=== PATIENT | female | born 1960 | race Caucasian/White ===

== ENCOUNTER 2017-03-26 08:22 | Outpatient (CLI) | payer BC | END 2017-03-26 08:23 | disposition home or self-care (01) | DX: Z13.89 Encounter for screening for other disorder (principal) ==

== ENCOUNTER 2017-10-19 11:48 | Outpatient (CLI) | payer OTHER | END 2017-10-19 11:49 | disposition home or self-care (01) | LOC: LAB 11:48 | PROVIDERS: ATTEND Obstetrics & Gynecology | DX: Z11.59 Encounter for screening for other viral diseases (principal) | CPT/HCPCS: 36415; 86803 ==

== ENCOUNTER 2017-10-25 16:05 | Outpatient (CLI) | payer OTHER ==
--- NOTE | 2017-10-27 17:32 | Mammography Report ---
DIGITAL SCREENING MAMMOGRAM: 10/25/2017 CLINICAL INDICATION: A 57-year-old for screening. COMPARISON: 08/2016, 07/2016, 05/2015, 04/2014, 01/2013, 11/2011, 11/2010. TECHNIQUE: Routine CC and MLO projections were obtained of the breasts. The breasts demonstrate scattered fibroglandular densities bilaterally. Punctate, typically benign c alcifications are present. The previously seen cyst in the right breast has resolved. No suspicious masses, clustered microcalcifications, or regions of architectural distortion are identified. IMPRESSION: BENIGN FINDINGS. RECOMMENDATION: ROUTINE ANNUAL SCREENING UNLESS OTHERWISE CLINICALLY INDICATED. BIRADS CATEGORY: 2, BENIGN FINDINGS. STANDARD QUALIFYING STATEMENTS 1. This examination was reviewed with the aid of Computed-Aided Detection (CAD). 2. A negative or benign imaging report should not delay biopsy if clinically suspicious findings are present. Consider surgical consultation if warranted. More than 5% of cancers are not identified b y imaging. 3. Dense breasts may obscure an underlying neoplasm. JOB #: [id number] EXT JOB #:[id number]
== END 2017-10-25 16:06 | disposition home or self-care (01) ==
LOC: DI.S 16:05
PROVIDERS: ATTEND Obstetrics & Gynecology
DX: Z12.39 Encounter for other screening for malignant neoplasm of breast (principal)
CPT/HCPCS: 77067

== ENCOUNTER 2018-10-21 10:58 | Outpatient (CLI) | payer BC ==
[2018-10-21 11:31] LABS: BASOPHILS # (AUTO) 0.1 10^3/uL (0.0-0.1); BASOPHILS % (AUTO) 1.2 %; EOSINOPHILS # (AUTO) 0.1 10^3/uL (0.0-0.7); EOSINOPHILS % (AUTO) 1.6 %; HGB - HEMOGLOBIN 14.5 g/dL (12.0-16.0); LYMPHOCYTES # (AUTO) 1.8 10^3/uL (1.5-3.5); LYMPHOCYTES % (AUTO) 34.9 %; MEAN CORPUSCULAR HEMOGLOBIN 32.6 pg (27.0-31.0); MEAN CORPUSCULAR HGB CONC 34.8 g/dL (32.0-36.0); MEAN CORPUSCULAR VOLUME 93.7 fL (81.0-99.0); MEAN PLATELET VOLUME 9.5 fL (7.9-10.8); MONOCYTES # (AUTO) 0.5 10^3/uL (0.0-1.0); MONOCYTES % (AUTO) 10.1 %; NEUTROPHILS # (AUTO) 2.7 10^3/uL (1.5-6.6); NEUTROPHILS % (AUTO) 52.2 %; PLT - PLATELET COUNT 229 10^3/uL (130-450); RED BLOOD COUNT 4.45 10^6/uL (4.20-5.40); RED CELL DISTRIBUTION WIDTH 12.4 % (12.0-15.0); WHITE BLOOD COUNT 5.1 x10^3/uL (4.8-10.8)
[2018-10-21 11:35] LABS: ALBUMIN 4.7 g/dL (3.2-5.5); ALBUMIN/GLOBULIN RATIO 1.7 (1.0-2.2); BILIRUBIN,TOTAL 0.9 mg/dL (0.2-1.0); CALCIUM 9.3 mg/dL (8.5-10.3); CREATININE 0.8 mg/dL (0.4-1.0); TOTAL PROTEIN 7.4 g/dL (6.7-8.2)
[2018-10-21 13:31] LABS: BILIRUBIN,URINE NEGATIVE (NEGATIVE); GLUCOSE, URINE (UA) NEGATIVE (NEGATIVE); KETONES,URINE (UA) NEGATIVE (NEGATIVE); LEUKOCYTE ESTERASE, URINE NEGATIVE (NEGATIVE); NITRITE,URINE NEGATIVE (NEGATIVE); OCCULT BLOOD,URINE NEGATIVE (NEGATIVE); PH,URINE 7.5 PH (5.0-7.5); PROTEIN,URINE NEGATIVE (NEGATIVE); UROBILINOGEN,URINE 0.2 (NORMAL) E.U./dL (NORMAL)
[2018-10-21 13:53] LABS: BACTERIA,URINE None Seen /HPF (None Seen); CLARITY,URINE CLEAR (CLEAR); RBC,URINE 0-5 /HPF (0-5); SQUAMOUS EPITHELIAL CELL,UR RARE Squamous (<= Few)
== END 2018-10-21 10:59 | disposition home or self-care (01) ==
LOC: LAB 10:58
PROVIDERS: ATTEND Obstetrics & Gynecology
DX: Z00.00 Encounter for general adult medical examination without abnormal findings (principal)
CPT/HCPCS: 36415; 80053; 81001; 84443; 85025; 87086

== ENCOUNTER 2018-12-01 09:58 | Outpatient (CLI) | payer BC ==
--- NOTE | 2018-12-02 09:53 | DEXA Report ---
Reason: WELL WOMAN EXAM Procedure Date: 12/01/2018 Accession Number: [id number] / [id number] Procedure: DEX - Dexa Spine and/or Hip CPT Code: FULL RESULT: EXAM: Dexa Spine and/or Hip DATE: 12/01/2018 10:39 AM CLINICAL HISTORY: WELL WOMAN EXAM TECHNIQUE: Dual energy x-ray absorptiometry (DXA) was performed on a [employer] System. Regions measured are the AP Spine, femoral neck, and if needed forearm. COMPARISON: 03/18/2017. In accordance with the International Society for Clinical Densitometry (ISCD) guidelines, data from previous exams may be reanalyzed using current recommendations and techniques. This is done to allow a more accurate basis for comparison with the current study. FINDINGS: The data for the lumbar spine is as follows: BMD (g/cm/cm) T-SCORE Z-SCORE REGION L1 0.892 -2.0 -0.6 L2 0.895 -2.5 -1.2 L3 0.865 -2.8 -1.4 L4 0.943 -2.1 -0.8 TOTAL 0.902 -2.3 -1.0 NOTE: All evaluable vertebrae are used for classification The data for the hip is as follows: BMD (g/cm/cm) T-SCORE Z-SCORE REGION Neck 0.716 -2.3 -1.0 TOTAL 0.788 -1.7 -0.7 NOTE: The femoral neck or total proximal femur, whichever is lowest, is used for classification. DXA RESULTS SUMMARY: Spine SCAN DATE AGE BMD CHANGE VS CHANGE VS PREVIOUS PREVIOUS % [birth year]01/2018 58.1 0.883 -0.063* -6.7* 03/26/2017 56.4 0.946 * Denotes significant change at the 95% confidence level. Denotes dissimilar scan types or analysis methods. DXA RESULTS SUMMARY: Hip SCAN DATE AGE BMD CHANGE VS CHANGE VS PREVIOUS PREVIOUS % [birth year]01/2018 58.1 0.788 -0.009 -1.1 03/26/2017 56.4 0.797 * Denotes significant change at the 95% confidence level. Denotes dissimilar scan types or analysis methods. IMPRESSION: THE WHO CLASSIFICATION BASED ON THE INTERNATIONAL REFERENCE STANDARD IS OSTEOPENIA. THE FRACTURE RISK IS INCREASED. RECOMMENDATION: Patients with diagnosis of osteoporosis or osteopenia should have regular bone mineral density assessment. For those eligible for Medicare, routine testing is allowed once every 2 years. Testing frequency can be increased for patients who have rapidly progressing disease or for those who are receiving medical therapy to restore bone mass. COMMENT: World Health Organization (WHO) definitions for osteoporosis and osteopenia: NORMAL BMD: T-score at -1.0 or higher, fracture risk is low OSTEOPENIA BMD: T-score between -1.0 and -2.5, fracture risk is increased. OSTEOPOROSIS BMD: T-score at -2.5 or lower, fracture risk is high. National Osteoporosis Foundation recommends: 1. Obtain adequate dietary calcium (at least 1200 mg per day) and vitamin D (400-800 international units per day). 2. Participate, as appropriate, in regular weightbearing and muscle-strengthening exercise. 3. Avoid tobacco use and reduce alcohol and caffeine intake. 4. For more detailed information see the website at www.NOF.org.
== END 2018-12-01 09:59 | disposition home or self-care (01) ==
LOC: DI 09:58
PROVIDERS: ATTEND Obstetrics & Gynecology
DX: Z00.00 Encounter for general adult medical examination without abnormal findings (principal); M85.89 Other specified disorders of bone density and structure, multiple sites
CPT/HCPCS: 77080

== ENCOUNTER 2018-12-01 10:01 | Outpatient (CLI) | payer BC ==
--- NOTE | 2018-12-02 09:23 | Mammography Report ---
Reason: WELL WOMAN EXAM Procedure Date: 12/01/2018 Accession Number: [id number] / [id number] Procedure: ANGELES - Screening Mammo w/[place] CPT Code: FULL RESULT: EXAM: Screening Mammo w/[place] DATE: 12/01/2018 11:24 AM CLINICAL HISTORY: Screening encounter. History of early menses. TECHNIQUE: Bilateral CC and MLO views were obtained. COMPARISON: 10/25/2017 through 05/23/2014. FINDINGS: The breasts demonstrate scattered fibroglandular densities bilaterally. A left breast lower outer nodule demonstrates morphology and typical fatty hilum consistent with intramammary lymph node, demonstrated on slice 15 of the left CC 3-D mammogram, typically benign. There is a 7 mm isodense partially obscured left breast nodule in the inferior inner left breast 3 cm from the nipple which demonstrates associated calcifications best seen on the 3-D CC projection on slice 22 and the left MLO projection on 3-D slice 28. This requires additional imaging with spot views and ultrasound. No suspicious masses, clustered microcalcifications, or regions of architectural distortion are identified in the right breast. IMPRESSION: Incomplete examination RECOMMENDATION: Additional evaluation as above to include spot views of the left breast and focused left breast ultrasound.. BIRADS CATEGORY 0: Incomplete examination STANDARD QUALIFYING STATEMENTS: 1. This examination was not reviewed with the aid of Computer-Aided Detection (CAD). 2. A negative or benign imaging report should not preclude biopsy if clinically suspicious findings are present. 3. Dense breasts may obscure an underlying neoplasm. 4. This examination was reviewed with the aid of 3D breast imaging (tomosynthesis).
== END 2018-12-01 10:02 | disposition home or self-care (01) ==
LOC: DI 10:01
PROVIDERS: ATTEND Obstetrics & Gynecology
DX: Z00.00 Encounter for general adult medical examination without abnormal findings (principal); R92.8 Other abnormal and inconclusive findings on diagnostic imaging of breast; R92.1 Mammographic calcification found on diagnostic imaging of breast
CPT/HCPCS: 77063; 77067

== ENCOUNTER 2018-12-14 14:17 | Outpatient (CLI) | payer BC ==
--- NOTE | 2018-12-14 17:17 | Mammography Report ---
Reason: ABN MAMMO - LT SPEC VIEWS Procedure Date: 12/14/2018 Accession Number: [id number] / [id number] Procedure: ANGELES - Diag Special Views Dig LT CPT Code: FULL RESULT: EXAM: Diag Special Views Dig LT, Breast Unilateral Limited DATE: 12/14/2018 3:35 PM CLINICAL HISTORY: Follow-up abnormal mammogram 12/01/2018 TECHNIQUE: Additional true lateral and spot compression views left breast. Real-time scanning by the sustain engineer of the left inner breast with saved static images reviewed. COMPARISON: 12/01/2018 FINDINGS: MAMMOGRAPHY: The described density in the lower inner left breast does not persist on the MLO spot compression or ML view. It partially dissipates on the CC spot compression view. ULTRASOUND: The medial left breast is scanned. No cystic or solid mass or abnormal fluid collection is seen. IMPRESSION: Benign findings RECOMMENDATION: Return to routine screening in 12 months. BIRADS CATEGORY 2: Benign findings STANDARD QUALIFYING STATEMENTS: 1. This examination was reviewed with the aid of Computer-Aided Detection (CAD). 2. A negative or benign imaging report should not delay biopsy if clinically suspicious findings are present. Consider surgical consultation if warrented. More than 5% of cancers are not identified by imaging. 3. Dense breasts may obscure an underlying neoplasm.
== END 2018-12-14 14:18 | disposition home or self-care (01) ==
LOC: DI 14:17
PROVIDERS: ATTEND Obstetrics & Gynecology
DX: R92.8 Other abnormal and inconclusive findings on diagnostic imaging of breast (principal)
CPT/HCPCS: 76642

== ENCOUNTER 2019-08-07 16:38 | Outpatient (CLI) | payer BC ==
--- NOTE | 2019-08-09 12:08 | Ultrasound Report ---
Reason: LUMP ON HEAD Procedure Date: 08/07/2019 Accession Number: [id number] / [id number] Procedure: US - Head or Neck Soft Tissue CPT Code: FULL RESULT: EXAM: LIMITED SOFT TISSUE HEAD ULTRASOUND EXAM DATE: 08/07/2019 05:18 PM. CLINICAL HISTORY: Lump on front head. COMPARISON: None. TECHNIQUE: Real time sonographic imaging of the frontal head soft tissue by the supervisor floor assembly. Multiple student services representative static images were saved for review. FINDINGS: In the left para-midline of the frontal head, the probable lump area, there is a deep broad-based lump with strong posterior shadowing, approximately 0.7 x 0.3 x 0.6 cm. IMPRESSION: The left frontal head lump is corresponding to a deep broad-based abnormal focal echogenicity with strong posterior shadowing, concern for a focal bony abnormality versus hypovascular fibroma type lesion, recommend further assessment by skull x-ray or non-IV contrast enhanced head CT. RADIA
== END 2019-08-07 16:39 | disposition home or self-care (01) ==
LOC: DI 16:38
PROVIDERS: ATTEND Physician Assistant Medical
DX: R22.0 Localized swelling, mass and lump, head (principal)
CPT/HCPCS: 76536

== ENCOUNTER 2019-10-09 15:10 | Outpatient (CLI) | payer BC ==
--- NOTE | 2019-10-09 16:27 | XRAY Report ---
Reason: ABNORMAL ULTRA SOUND,LIZBET GROWTH Procedure Date: 10/09/2019 Accession Number: [id number] / [id number] Procedure: XR - Skull Complete CPT Code: Final Report FULL RESULT: EXAM: SKULL RADIOGRAPHY EXAM DATE: 10/09/2019 03:12 PM. CLINICAL HISTORY: Abnormal ultrasound, left forehead lump. COMPARISON: HEAD OR NECK SOFT TISSUE 08/07/2019. TECHNIQUE: 2 views. FINDINGS: Bones: Normal. No fractures or bone lesions. Sinuses: Normal. No opacities or fluid levels. Other: Normal. No soft tissue swelling. IMPRESSION: Normal skull radiography. Etiology of palpable lump/ultrasound finding not elucidated on this exam. Consider clinical surveillance to ensure stability/confirm benign physiologic behavior. If further imaging desired, consider nonenhanced head CT with nonmetallic marker overlying the palpable area of concern. RADIA
== END 2019-10-09 15:11 | disposition home or self-care (01) ==
LOC: DI 15:10
PROVIDERS: ATTEND Physician Assistant Medical
DX: R93.0 Abnormal findings on diagnostic imaging of skull and head, not elsewhere classified (principal)
CPT/HCPCS: 70260

== ENCOUNTER 2019-12-22 16:36 | Outpatient (CLI) | payer BC, OTHER ==
--- NOTE | 2019-12-25 13:32 | Mammography Report ---
Reason: ROUTINE MAMMO Procedure Date: 12/22/2019 Accession Number: [id number] / [id number] Procedure: ANGELES - Screening Mammo w/[place] CPT Code: Final Report FULL RESULT: EXAM: Screening Mammo w/[place] DATE: 12/22/2019 4:58 PM CLINICAL HISTORY: Screening encounter. History of early menses. TECHNIQUE: (B) - Bilateral CC and MLO views were obtained. COMPARISON: 12/14/2018 through 12/15/2010. PARENCHYMAL PATTERN: (A) - The breast(s) demonstrate(s) scattered fibroglandular densities. FINDINGS: There are no suspicious masses, calcifications, or areas of distortion. IMPRESSION: Negative examination. BI-RADS category 1. RECOMMENDATION: (ANNUAL) - Recommend routine annual screening mammography. BI-RADS CATEGORY: (1) - Negative. STANDARD QUALIFYING STATEMENTS: 1. This examination was not reviewed with the aid of Computer-Aided Detection (CAD). 2. A negative or benign imaging report should not preclude biopsy if clinically suspicious findings are present. 3. Dense breasts may obscure an underlying neoplasm. 4. This examination was reviewed with the aid of 3D breast imaging (tomosynthesis).
== END 2019-12-22 16:37 | disposition home or self-care (01) ==
LOC: DI 16:36
PROVIDERS: ATTEND Registered Nurse
DX: Z12.31 Encounter for screening mammogram for malignant neoplasm of breast (principal)
CPT/HCPCS: 77063; 77067

== ENCOUNTER 2019-12-22 16:40 | Outpatient (CLI) | payer BC, OTHER ==
--- NOTE | 2019-12-25 14:03 | DEXA Report ---
Reason: OSTEOPOROSIS Procedure Date: 12/22/2019 Accession Number: [id number] / [id number] Procedure: DEX - Dexa Spine and/or Hip CPT Code: Final Report FULL RESULT: EXAM: Dexa Spine and/or Hip DATE: 12/22/2019 5:32 PM CLINICAL HISTORY: OSTEOPOROSIS TECHNIQUE: Dual energy x-ray absorptiometry (DXA) was performed on a [employer] System. Regions measured are the AP Spine, femoral neck, and if needed forearm. COMPARISON: 12/01/2018. In accordance with the International Society for Clinical Densitometry (ISCD) guidelines, data from previous exams may be reanalyzed using current recommendations and techniques. This is done to allow a more accurate basis for comparison with the current study. FINDINGS: The data for the lumbar spine is as follows: BMD (g/cm/cm) T-SCORE Z-SCORE REGION L1 0.925 -1.7 -0.3 L2 0.892 -2.6 -1.1 L3 0.909 -2.4 -1.0 L4 0.887 -2.6 -1.2 TOTAL 0.902 -2.3 -0.9 NOTE: All evaluable vertebrae are used for classification The data for the hip is as follows: BMD (g/cm/cm) T-SCORE Z-SCORE REGION Neck 0.722 -2.3 -0.9 TOTAL 0.762 -2.0 -0.9 NOTE: The femoral neck or total proximal femur, whichever is lowest, is used for classification. DXA RESULTS SUMMARY: Spine SCAN DATE AGE BMD CHANGE VS CHANGE VS PREVIOUS PREVIOUS % 11/22/2019 59.2 0.902 0.000 0.0 12/01/2018 58.1 0.902 -0.020 -2.2 03/26/2017 56.4 0.922 * Denotes significant change at the 95% confidence level. Denotes dissimilar scan types or analysis methods. DXA RESULTS SUMMARY: Hip SCAN DATE AGE BMD CHANGE VS CHANGE VS PREVIOUS PREVIOUS % [birth year][age]22/2019 60.2 0.762 -0.026 -3.3 12[birth year]01/2018 58.1 0.788 -0.009 -1.1 03/26/2017 56.4 0.797 * Denotes significant change at the 95% confidence level. Denotes dissimilar scan types or analysis methods. IMPRESSION: THE WHO CLASSIFICATION BASED ON THE INTERNATIONAL REFERENCE STANDARD IS OSTEOPENIA. THE FRACTURE RISK IS INCREASED. RECOMMENDATION: Patients with diagnosis of osteoporosis or osteopenia should have regular bone mineral density assessment. For those eligible for Medicare, routine testing is allowed once every 2 years. Testing frequency can be increased for patients who have rapidly progressing disease or for those who are receiving medical therapy to restore bone mass. COMMENT: World Health Organization (WHO) definitions for osteoporosis and osteopenia: NORMAL BMD: T-score at -1.0 or higher, fracture risk is low OSTEOPENIA BMD: T-score between -1.0 and -2.5, fracture risk is increased. OSTEOPOROSIS BMD: T-score at -2.5 or lower, fracture risk is high. National Osteoporosis Foundation recommends: 1. Obtain adequate dietary calcium (at least 1200 mg per day) and vitamin D (400-800 international units per day). 2. Participate, as appropriate, in regular weightbearing and muscle-strengthening exercise. 3. Avoid tobacco use and reduce alcohol and caffeine intake. 4. For more detailed information see the website at www.NOF.org.
== END 2019-12-22 16:41 | disposition home or self-care (01) ==
LOC: DI 16:40
PROVIDERS: ATTEND Registered Nurse
DX: Z13.820 Encounter for screening for osteoporosis (principal); M85.89 Other specified disorders of bone density and structure, multiple sites
CPT/HCPCS: 77080

== ENCOUNTER 2021-01-29 09:40 | Outpatient (CLI) | payer OTHER ==
--- NOTE | 2021-01-30 08:38 | Mammography Report ---
BILATERAL DIGITAL DIAGNOSTIC MAMMOGRAM 3D/2D: 01/29/2021 CLINICAL: Left breast lump. Comparison is made to exams dated: 12/22/2019 mammogram, 12/14/2018 mammogram, 12/01/2018 mammogram, mammogram, and 09/04/2016 mammogram - [facility]. There are scattered fibro glandular elements in both breasts. No significant masses, calcifications, or other findings are seen in either breast. Specifically, no finding to correspond to the patient's painful palpable abnormality. IMPRESSION: INCOMPLETE: NEEDS ADDITIONAL IMAGING EVALUATION There is no abnormality seen in the left breast to correspond with the palpable abnormality and pain in the lateral aspect. Ultrasound is recommended for full evaluation of this area. This was performed immediately following this exam. This exam was interpreted at Station ID: [id number]. NOTE: For mammograms, a report in lay terms will be sent to the patient. Approximately 15% of breast malignancies will not be visualized mammographically. In the management of a palpable breast mass, a negative mammogram must not discourage biopsy of a clinically suspicious lesion. Electronically Signed By: Letty tompkins/:01/29/2021 10:54:26 ACR BI-RADS Category 0: Incomplete 3340F PARENCHYMAL PATTERN: (A) - The breast(s) demonstrate(s) scattered fibroglandular densities. BI-RADS CATEGORY: (0) - 0 Ultrasound [id number] Immediate follow-up LATERALITY: (B)
--- NOTE | 2021-01-30 08:38 | Ultrasound Report ---
LIMITED ULTRASOUND OF LEFT BREAST: 01/29/2021 CLINICAL: Palpable left breast lump. Comparison is made to exams dated: 01/29/2021 mammogram, 12/22/2019 mammogram, 12/14/2018 mammogram, 11/29 ultrasound, 12/01/2018 mammogram, and 10/25/2017 mammogram - [facility]. Color flow and real-time ultrasound of the left breast 2 o'clock region were performed. Godfrey scale images of the real-time examination were reviewed. There is a benign appearing 6 mm normal lymph node in the left breast at 2 o'clock middle depth. Thi s normal lymph node displays fatty hilum. This correlates as palpated. Color flow imaging demonstra madelyn that there is no vascularity present. IMPRESSION: BENIGN There is no sonographic evidence of malignancy. The 6 mm lymph node in the left breast corresponds to the palpable area, and is consistent with a kelvin ign node. Return to annual mammogram screening schedule is recommended. Findings and recommendations were conveyed to the patient at time of exam. This exam was interpreted at Station ID: [id number]. Electronically Signed By: Letty tompkins/:01/29/2021 11:44:04 Ultrasound BI-RADS: 2 Benign BI-RADS CATEGORY: (2) - 2 RECOMMENDATION: (ANNUAL) - Recommend routine annual screening mammography. [id number] return to screening LATERALITY: (B)
== END 2021-01-29 09:41 | disposition home or self-care (01) ==
LOC: DI 09:40
PROVIDERS: ATTEND Nurse Practitioner Family
DX: N63.21 Unspecified lump in the left breast, upper outer quadrant (principal)

== ENCOUNTER 2021-06-21 08:00 | Outpatient (CLI) | payer OTHER ==
[2021-06-21 18:49] LABS: BILIRUBIN,URINE NEGATIVE (NEGATIVE); GLUCOSE, URINE (UA) NEGATIVE (NEGATIVE); KETONES,URINE (UA) NEGATIVE (NEGATIVE); LEUKOCYTE ESTERASE, URINE NEGATIVE (NEGATIVE); NITRITE,URINE NEGATIVE (NEGATIVE); OCCULT BLOOD,URINE NEGATIVE (NEGATIVE); PH,URINE 8.5 PH (5.0-7.5); PROTEIN,URINE NEGATIVE (NEGATIVE); UROBILINOGEN,URINE 0.2 (NORMAL) E.U./dL (NORMAL)
[2021-06-21 18:58] LABS: CLARITY,URINE CLEAR (CLEAR)
[2021-06-21 19:16] LABS: AMORPHOUS SEDIMENT,UR Marked /LPF; BACTERIA,URINE None Seen /HPF (None Seen); RBC,URINE None Seen /HPF (0-5); SQUAMOUS EPITHELIAL CELL,UR NONE SEEN (<= Few); WBC,URINE 0-3 /HPF (0-5)
== END 2021-06-21 23:59 | disposition home or self-care (01) ==
LOC: LAB.S 08:00
PROVIDERS: ATTEND Emergency Medicine
DX: R30.0 Dysuria (principal)
CPT/HCPCS: 81001; 87086

== ENCOUNTER 2022-04-18 05:05 | Emergency (ER) | payer OTHER ==
[2022-04-18 05:36] LABS: BILIRUBIN,URINE NEGATIVE (NEGATIVE); GLUCOSE, URINE (UA) NEGATIVE (NEGATIVE); KETONES,URINE (UA) NEGATIVE (NEGATIVE); LEUKOCYTE ESTERASE, URINE NEGATIVE (NEGATIVE); NITRITE,URINE NEGATIVE (NEGATIVE); OCCULT BLOOD,URINE NEGATIVE (NEGATIVE); PROTEIN,URINE NEGATIVE (NEGATIVE); UROBILINOGEN,URINE 0.2 (NORMAL) E.U./dL (NORMAL)
[2022-04-18 05:39] LABS: BASOPHILS # (AUTO) 0.1 10^3/uL (0.0-0.1); BASOPHILS % (AUTO) 0.4 %; EOSINOPHILS # (AUTO) 0.1 10^3/uL (0.0-0.7); EOSINOPHILS % (AUTO) 0.4 %; HCT - HEMATOCRIT 44.6 % (37.0-47.0); HGB - HEMOGLOBIN 15.2 g/dL (12.0-16.0); LYMPHOCYTES % (AUTO) 13.9 %; MEAN CORPUSCULAR HEMOGLOBIN 31.8 pg (27.0-31.0); MEAN CORPUSCULAR HGB CONC 34.1 g/dL (32.0-36.0); MEAN CORPUSCULAR VOLUME 93.3 fL (81.0-99.0); MEAN PLATELET VOLUME 10.8 fL (7.9-10.8); MONOCYTES # (AUTO) 1.2 10^3/uL (0.0-1.0); MONOCYTES % (AUTO) 8.7 %; NEUTROPHILS # (AUTO) 10.8 10^3/uL (1.5-6.6); NEUTROPHILS % (AUTO) 76.3 %; PLT - PLATELET COUNT 258 10^3/uL (130-450); RED BLOOD COUNT 4.78 10^6/uL (4.20-5.40); WHITE BLOOD COUNT 14.2 x10^3/uL (4.8-10.8)
--- NOTE | 2022-04-18 05:47 | ED Physician Documentation ---
PD HPI ABD PAIN - Stated complaint Stated Complaint: FEVER/NAUSEA/ABD PAIN - Chief complaint Chief Complaint: Abd Pain - History obtained from History obtained from: Patient - History of Present Illness Timing - onset: Enter time (04:30), Yesterday Timing - details: Abrupt onset (woke with symptoms) Pain level now: 6 Quality: Pain Location: LLQ Radiation: Other (does not radiate) Improved by: Laying still Worsened by: Moving, Palpation Associated symptoms: Fever (Tmax 101), Nausea, Vomiting. 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 Denies h/o similar pain. The pain is constant and has steadily become more severe. The pain is worse with movement, palpation. This morning she developed a fever of 101 . Review of Systems Constitutional: reports: Fever, Chills, Sweats Cardiac: reports: Reviewed and negative Respiratory: reports: Reviewed and negative GI: reports: Abdominal Pain, Nausea, Vomiting. denies: Abdominal Swelling, Constipation, Diarrhea, Bloody / black stool : denies: Dysuria, Frequency PD PAST MEDICAL HISTORY - Past Medical History Past Medical History: Yes Cardiovascular: None Respiratory: None Endocrine/Autoimmune: None GI: GERD, Other : None HEENT: None Psych: None Musculoskeletal: None Derm: None Other Past Medical History: Granger's Esophagus - Past Surgical History Past Surgical History: Yes General: Cholecystectomy, Colonoscopy, EGD /JUTE BAG CLIPPER: Other - Present Medications Home Medications: Ambulatory Orders Medication Instructions Recorded Confirmed Lansoprazole [Prevacid] 15 mg PO DAILY 02/24/16 02/25/16 Amox/Clav 875/125 [Augmentin] 1 each PO TID #30 tablet 04/18/22 HYDROcod/ACETAM 5/325 [[place] 5/325] 1 - 2 tab PO Q6H PRN #10 tablet 04/18/22 - Allergies Allergies/Adverse Reactions: Allergies Allergy/AdvReac Type Severity Reaction Status Date / Time No Known Drug Allergies Allergy Verified 04/18/22 05:15 - Social History Does the pt smoke?: No Smoking Status: Never smoker Does the pt drink ETOH?: No Does the pt have substance abuse?: No - Immunizations Immunizations are current?: Yes - POLST Patient has POLST: No PD ED PE NORMAL - Vitals Vital signs reviewed: Yes - General General: Alert and oriented X 3, No acute distress, Well developed/nourished - HEENT HEENT: Moist mucous membranes - Cardiac Cardiac: RRR, No murmur - Respiratory Respiratory: No respiratory distress, Clear bilaterally - Abdomen Abdomen: Soft, Non distended, Other (LLQ mild/moderate TTP without rebound or guarding) - Back Back: No CVA TTP - Derm Derm: Normal color, Warm and dry Results - Vitals Vitals: Oxygen O2 Source Room air - Labs Labs: Laboratory Tests 04/18/22 04/18/22 04/18/22 05:30 05:30 05:30 WBC 14.2 H RBC 4.78 Hgb 15.2 Hct 44.6 MCV 93.3 MCH 31.8 H MCHC 34.1 RDW 12.0 Plt Count 258 MPV 10.8 Neut # (Auto) 10.8 H Lymph # (Auto) 2.0 [place] # (Auto) 1.2 H Eos # (Auto) 0.1 Baso # (Auto) 0.1 Absolute Nucleated RBC 0.00 Nucleated RBC % 0.0 Sodium 138 Potassium 3.9 Chloride 102 Carbon Dioxide 26 Anion Gap 10.0 BUN 21 H Creatinine 0.9 Estimated GFR (MDRD) 63 L Glucose 124 H Calcium 9.5 Total Bilirubin 0.8 AST 22 ALT 16 Alkaline Phosphatase 67 Total Protein 7.5 Albumin 4.5 Globulin 3.0 Albumin/Globulin Ratio 1.5 Lipase 34 Urine Color YELLOW Urine Clarity CLEAR Urine pH 8.0 H Ur Specific [place] 1.020 Urine Protein NEGATIVE Urine Glucose (UA) NEGATIVE Urine Ketones NEGATIVE Urine Occult Blood NEGATIVE Urine Nitrite NEGATIVE Urine Bilirubin NEGATIVE Urine Urobilinogen 0.2 (NORMAL) Ur Leukocyte Esterase NEGATIVE Ur Microscopic Review NOT INDICATED Urine Culture Comments NOT INDICATED - Rads (name of study) CT A/P with IV contrast Radiology: Prelim report reviewed, See rad report PD MEDICAL DECISION MAKING - ED course Complexity details: reviewed results, re-evaluated patient, considered differential, d/w patient ED course: presents with LLQ pain x 24 hours. She says she had 101 fever at home although afebrile in ED. Leukocytosis (14.2 wbc) but no other notable/concerning abnormalities on blood tests nor UA. CT A/P with IV contrast performed and results pending at the end of my shift, thus care of patient signed out to Dr. Fishman. Prior to end of my shift, on reevaluation she reported excellent symptomatic relief with IV toradol and zofran. She was also given 1 liter NS for rehydration with 150cc/hour NS maintenance rate. Departure - Departure Disposition: 01 Home, Self Care Clinical Impression: Diverticulitis of gastrointestinal tract Condition: Good Instructions: Diet Low Residue, ED Diverticulitis Prescriptions: Amox/Clav 875/125 [Augmentin] 1 each PO TID #30 tablet HYDROcod/ACETAM 5/325 [[place] 5/325] 1 - 2 tab PO Q6H PRN #10 tablet PRN Reason: Pain Comments: I sent the prescriptions to [facility] in [place]. Return if you worsen, fail to improve over the next 24 hours, or fevers do not go away in that timeframe. Follow-up with your doctor early next week, calling Wednesday first thing for next available appointment. I am prescribing a short course of narcotic pain medication for you. These are potentially dangerous and addictive medications that should be used carefully. These medications may constipate you. Take an adzv-ydv-evewmoz stool softener (docusate) twice daily with plenty of water while taking these medications. If you go 24 hours without a bowel movement, take sabt-dsj-iupehti miralax, per package instructions. Do not drink or drive while taking these medications. If you received narcotic or sedating medications while in the emergency department, do not drive for 24 hours. Store this medication in a safe, secure place and out of reach of children. It is a violation of federal law to give or sell this medication to another person or to use in a manner other than prescribed. The ED will not refill narcotic prescriptions, including prescriptions lost or stolen. To dispose of unwanted medications: 1. [facility] at [address] in [place] has a medication drop box. They accept prescription medications (in pill form) Wednesday through Wednesday 9:00 a.m. to 5:00 p.m. 2. The [facility] [employer] accepts prescription medications (in pill form only) for disposal year round. Call for more information. 3. Contact the [facility] for the next [facility] sponsored prescription drug collection event. , [phone], or [phone]; Note that many narcotic pain relievers also contain Tylenol/acetaminophen. Please ensure that your total dose of acetaminophen from all sources does not exceed 3 g (3000 mg) per day. Discharge Date/Time: 04/18/22 07:58
[2022-04-18 05:53] LABS: ALBUMIN 4.5 g/dL (3.2-5.5); ALBUMIN/GLOBULIN RATIO 1.5 (1.0-2.2); BILIRUBIN,TOTAL 0.8 mg/dL (0.2-1.0); CALCIUM 9.5 mg/dL (8.5-10.3); CREATININE 0.9 mg/dL (0.4-1.0); POTASSIUM 3.9 mmol/L (3.5-5.0); TOTAL PROTEIN 7.5 g/dL (6.7-8.2)
[2022-04-18] MEDS ORDERED: KETOROLAC 30 MG/ML VIAL IVP STA (06:06)
[2022-04-18] MEDS ORDERED: SODIUM CHLORIDE 0.9% 1,000 ML IV STA ×2 (06:06→06:07)
[2022-04-18 06:15] LABS: CLARITY,URINE CLEAR (CLEAR)
[2022-04-18] MEDS ORDERED: ONDANSETRON 4 MG/2 ML VIAL IVP STA (06:27)
[2022-04-18] MEDS ORDERED: IOVERSOL 320 100 ML VIAL IVP ONE ×2 (06:32→06:56)
[2022-04-18 06:58] VITALS: BP 135/87
[2022-04-18] MEDS ORDERED: AMOX/CLAV 875 MG/125 MG TABLET PO STA (07:38)
--- NOTE | 2022-04-18 07:40 | ED Physician Documentation ---
ED Addendum - Addendum Addendum: 04/18/22 07:38 61-year-old woman signed out to me by Dr. Austin at shift change. Briefly presented with pelvic and left lower quadrant pain, fever at home not corroborated here and a white count of 14,000. She is comfortable after the Toradol that he gave her. CT showing uncomplicated diverticulitis. Discussed with patient and family. Discussed current guidelines to consider a trial of dietary changes only and after discussion including noting that AGA guidelines are based on "low" evidence she would like to start antibiotics immediately which is not unreasonable given her elevated white count and fever. Disposition: Discharged home Condition: Stable Diagnosis: 1. Diverticulitis Prescription for Augmentin 875/125 1 p.o. 3 times daily #30 no refills sent to [facility] in [place]. Also a prescription for hydrocodone 5/325 1 tab to 2 tabs p.o. every 6 hours as needed pain #10
--- NOTE | 2022-04-18 19:19 | CT Report ---
PROCEDURE: Abdomen/Pelvis W INDICATIONS: LLQ pain, fever CONTRAST: IV CONTRAST: Optiray 320 ml: 100 PO CONTRAST: *NO PO CONTRAST TECHNIQUE: After the administration of intravenous contrast, 5 mm thick sections acquired from the diaphragms to the symphysis. 5 mm thick coronal and sagittal reformats were acquired. For radiation dose reducti on, the following was used: automated exposure control, adjustment of mA and/or kV according to daniel ent size. COMPARISON: None. FINDINGS: Image quality: Excellent. ABDOMEN: Lung bases: Lung bases are clear. Heart size is normal. Solid organs: Liver and spleen are normal in size and enhancement. Gallbladder is surgically absent Biliary system is non dilated. Pancreas enhances normally. No adrenal nodules. Kidneys demonstra te normal size and enhancement, without hydronephrosis. Peritoneum and bowel: There are scattered diverticuli identified. At the level of the junction betwee n the distal descending colon and sigmoid, there is a diverticulum with associated wall thickening an d inflammation in the surrounding fat. Findings are consistent with acute uncomplicated diverticuliti s. No free fluid or air. Nodes and vessels: No retroperitoneal or mesenteric adenopathy by size criteria. Aorta and inferior vena cava are normal in size. 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 Miscellaneous: No ventral hernias. PELVIS: Genitourinary: Bladder wall thickness is normal. Miscellaneous: No inguinal hernias or adenopathy. Bones: No suspicious bony lesions. No vertebral body compression fractures. IMPRESSION: 1. Acute uncomplicated diverticulitis at the junction of the distal descending colon and the sigmoid. 2. Incidental note made of marked dilatation of the left canal vein with extensive pelvic varicositie s. This is consistent with left gonadal vein reflux. In a subset of patients, this can correlate with the clinical syndrome of chronic pelvic venous congestion. Reviewed by: Patel Rogers MD on 04/18/2022 7:18 PM PDT Approved by: Patel Rogers MD on 04/18/2022 7:18 PM PDT Station ID: [id number]
== END 2022-04-18 07:58 | disposition home or self-care (01) ==
LOC: ED 05:05
DX: K57.92 Diverticulitis of intestine, part unspecified, without perforation or abscess without bleeding (principal)
CPT/HCPCS: 36415; 74177; 80053; 81003; 83690; 85025; 96374; 96375; 99284; A9270; Q9967; 81001; 87086

== ENCOUNTER 2022-05-11 08:33 | Outpatient (CLI) | payer OTHER ==
--- NOTE | 2022-05-11 09:34 | DEXA Report ---
PROCEDURE: Dexa Spine and/or Hip INDICATIONS: OSTEOPOROSIS TECHNIQUE: Dual energy x-ray absorptiometry (DXA) was performed on a [employer] System. Regions measur ed are the AP Spine, femoral neck, and if needed forearm. COMPARISON: 12/22/2019, 12/01/2018 and 03/26/2017. FINDINGS: Lumbar Spine: Bone Mineral Density 0.932 g/cm/cm,T score -2.2, osteopenia Left Hip: Bone Mineral Density 0.730 g/cm/cm,T score -2.2, osteopenia Left Femoral Neck: Bone Mineral Density 0.699 g/cm/cm, T score -2.4, osteopenia (T score greater or equal to -1.0: NORMAL) (T score from -1.1 to -2.4: OSTEOPENIA) (T score less than or equal to -2.5 to: OSTEOPOROSIS) Impression: Osteopenia. Bone mineral density has decreased 4.2% interval since prior exam obtained 12/22/2019. Patients with diagnosis of osteoporosis or osteopenia should have regular bone mineral density assess ment. For those eligible for Medicare, routine testing is allowed once every 2 years. Testing frequ ency can be increased for patients who have rapidly progressing disease or for those who are receivin g medical therapy to restore bone mass. Reviewed by: Marianela Lucia MD, PhD on 05/11/2022 9:32 AM PDT Approved by: Marianela Lucia MD, PhD on 05/11/2022 9:32 AM PDT Station ID: [id number]
== END 2022-05-11 08:34 | disposition home or self-care (01) ==
LOC: DI 08:33
PROVIDERS: ATTEND Nurse Practitioner Family
DX: M85.89 Other specified disorders of bone density and structure, multiple sites (principal); E78.5 Hyperlipidemia, unspecified
CPT/HCPCS: 36415; 80053; 80061; 82306; 83721

== ENCOUNTER 2022-05-11 08:55 | Outpatient (CLI) | payer OTHER ==
[2022-05-11 09:34] LABS: ALBUMIN 4.4 g/dL (3.2-5.5); ALBUMIN/GLOBULIN RATIO 1.5 (1.0-2.2); ALKALINE PHOSPHATASE 63 IU/L (42-121); ALT ALANINE AMINOTRANSFERASE 16 IU/L (10-60); AST ASPARTATE AMINOTRANSFERASE 19 IU/L (10-42); BILIRUBIN,TOTAL 0.9 mg/dL (0.2-1.0); BUN - BLOOD UREA NITROGEN 28 mg/dL (6-20); CALCIUM 9.8 mg/dL (8.5-10.3); CARBON DIOXIDE - CO2 27 mmol/L (21-32); CHLORIDE 102 mmol/L (101-111); CHOL/HDL RATIO 2.3 (<4.4); CHOLESTEROL 238 mg/dL; CREATININE 0.9 mg/dL (0.4-1.0); GFR - MDRD 63 (>89); GLUCOSE 109 mg/dL (70-100); HDL CHOLESTEROL 102 mg/dL; SODIUM 140 mmol/L (135-145); TOTAL PROTEIN 7.3 g/dL (6.7-8.2); TRIGLYCERIDES 36 mg/dL
== END 2022-05-11 08:56 | disposition home or self-care (01) ==
LOC: LAB 08:55
PROVIDERS: ATTEND Nurse Practitioner Family
DX: E78.5 Hyperlipidemia, unspecified (principal); M81.0 Age-related osteoporosis without current pathological fracture
CPT/HCPCS: 36415; 80053; 80061; 82306; 83721

== ENCOUNTER 2022-05-12 09:55 | Outpatient (CLI) | payer OTHER ==
--- NOTE | 2022-05-13 12:15 | Mammography Report ---
BILATERAL DIGITAL SCREENING MAMMOGRAM 3D/2D: 05/12/2022 CLINICAL: Routine screening. Comparison is made to exams dated: 01/29/2021 mammogram, 12/22/2019 mammogram, 10/25/2017 mammogram, mammogram, and 12/01/2018 mammogram - [facility]. There are scattered fibrog landular elements in both breasts. No significant masses, calcifications, or other findings are seen in either breast. There has been no significant interval change. IMPRESSION: NEGATIVE There is no mammographic evidence of malignancy. A 1 year screening mammogram is recommended. This exam was interpreted at Station ID: [id number]. NOTE: For mammograms, a report in lay terms will be sent to the patient. Approximately 15% of breast malignancies will not be visualized mammographically. In the management of a palpable breast mass, a negative mammogram must not discourage biopsy of a clinically suspicious lesion. Electronically Signed By: Valentin garduno/penrad:05/12/2022 13:02:09 ACR BI-RADS Category 1: Negative 3341F PARENCHYMAL PATTERN: (A) - The breast(s) demonstrate(s) scattered fibroglandular densities. BI-RADS CATEGORY: (1) - 1 RECOMMENDATION: (ANNUAL) - Recommend routine annual screening mammography. [id number] 1 year screening LATERALITY: (B)
== END 2022-05-12 09:56 | disposition home or self-care (01) ==
LOC: DI.S 09:55
PROVIDERS: ATTEND Nurse Practitioner Family
DX: Z12.31 Encounter for screening mammogram for malignant neoplasm of breast (principal)

== ENCOUNTER 2022-11-27 08:00 | Outpatient (CLI) | payer OTHER | END 2022-11-27 23:59 | disposition home or self-care (01) | LOC: LAB 08:00 | PROVIDERS: ATTEND Registered Nurse | DX: N39.9 Disorder of urinary system, unspecified (principal) | CPT/HCPCS: 87086 ==

== ENCOUNTER 2022-12-14 08:00 | Outpatient (CLI) | payer OTHER | END 2022-12-14 23:59 | disposition home or self-care (01) | LOC: LAB 08:00 | PROVIDERS: ATTEND Physician Assistant Medical | DX: R39.9 Unspecified symptoms and signs involving the genitourinary system (principal) | CPT/HCPCS: 87086 ==

== ENCOUNTER 2023-02-24 13:22 | Outpatient (CLI) | payer OTHER | END 2023-02-24 23:59 | disposition critical access hospital (66) | LOC: EMS 13:22 | DX: R42 Dizziness and giddiness (principal); R11.2 Nausea with vomiting, unspecified | CPT/HCPCS: A0425; A0427; A0429 ==

== ENCOUNTER 2023-02-24 13:55 | Emergency (ER) | payer OTHER ==
[2023-02-24 14:21] LABS: BASOPHILS # (AUTO) 0.1 10^3/uL (0.0-0.1); BASOPHILS % (AUTO) 0.6 %; EOSINOPHILS % (AUTO) 0.2 %; HCT - HEMATOCRIT 40.7 % (37.0-47.0); HGB - HEMOGLOBIN 13.4 g/dL (12.0-16.0); LYMPHOCYTES # (AUTO) 1.3 10^3/uL (1.5-3.5); LYMPHOCYTES % (AUTO) 15.4 %; MEAN CORPUSCULAR HEMOGLOBIN 30.6 pg (27.0-31.0); MEAN CORPUSCULAR HGB CONC 32.9 g/dL (32.0-36.0); MEAN CORPUSCULAR VOLUME 92.9 fL (81.0-99.0); MEAN PLATELET VOLUME 10.8 fL (7.9-10.8); MONOCYTES # (AUTO) 0.4 10^3/uL (0.0-1.0); MONOCYTES % (AUTO) 5.4 %; NEUTROPHILS # (AUTO) 6.4 10^3/uL (1.5-6.6); NEUTROPHILS % (AUTO) 78.2 %; PLT - PLATELET COUNT 222 10^3/uL (130-450); RED BLOOD COUNT 4.38 10^6/uL (4.20-5.40); RED CELL DISTRIBUTION WIDTH 11.9 % (12.0-15.0); WHITE BLOOD COUNT 8.2 x10^3/uL (4.8-10.8)
--- NOTE | 2023-02-24 14:29 | ED Physician Documentation ---
History of Present Illness - Stated complaint Stated Complaint: Dizziness - Chief complaint Chief Complaint: Neuro - History obtained from History obtained from: Patient, Family - Additonal information Additional information: 62-year-old female with medical history only significant for Granger's esophagus presents with sudden onset of dizziness this morning. She first felt lightheaded around 8:30 in the morning and then turned into more vertigo around 1130 this morning. Since then she has not been able to keep her eyes open because she feels so dizzy and vertiginous. She has also been profusely vomiting since the onset of the symptoms.She Review of Systems Constitutional: reports: Chills. denies: Fever, Myalgias, Fatigue, Weight Loss, Sweats Eyes: reports: Reviewed and negative Ears: reports: Reviewed and negative Nose: reports: Reviewed and negative Throat: reports: Reviewed and negative Cardiac: reports: Reviewed and negative Respiratory: reports: Reviewed and negative GI: reports: Reviewed and negative : reports: Reviewed and negative Skin: reports: Reviewed and negative Musculoskeletal: reports: Reviewed and negative Neurologic: reports: Other (severe dizziness and vertigo). denies: Generalized weakness, Focal weakness, Numbness, Difficulty speaking, Near syncope, Syncope, Seizure, Confused, Altered mental status, Headache, Head injury, LOC Psychiatric: reports: Reviewed and negative Endocrine: reports: Reviewed and negative PD PAST MEDICAL HISTORY - Past Medical History Past Medical History: Yes Cardiovascular: None Respiratory: None Endocrine/Autoimmune: None GI: GERD, Other : None HEENT: None Psych: None Musculoskeletal: None Derm: None - Past Surgical History Past Surgical History: Yes General: Cholecystectomy, Colonoscopy, EGD /COSMETIC MANAGER: Other - Present Medications Home Medications: Ambulatory Orders Medication Instructions Recorded Confirmed Lansoprazole [Prevacid] 15 mg PO DAILY 02/24/16 02/25/16 Amox/Clav 875/125 [Augmentin] 1 each PO TID #30 tablet 04/18/22 HYDROcod/ACETAM 5/325 [[place] 5/325] 1 - 2 tab PO Q6H PRN #10 tablet 04/18/22 - Allergies Allergies/Adverse Reactions: Allergies Allergy/AdvReac Type Severity Reaction Status Date / Time No Known Drug Allergies Allergy Verified 02/24/23 14:08 - Social History Does the pt smoke?: No Smoking Status: Never smoker Does the pt drink ETOH?: No Does the pt have substance abuse?: No - Immunizations Immunizations are current?: Yes - POLST Patient has POLST: No PD ED PE NORMAL - Vitals Vital signs reviewed: Yes - General General: Alert and oriented X 3, No acute distress, Well developed/nourished - HEENT HEENT: Atraumatic, PERRL, EOMI, Other (bilateral multidirectional nystagmus) - Neck Neck: Supple, no meningeal sign, No adenopathy, No JVD - Cardiac Cardiac: RRR, No murmur, No gallop, No rub, Strong equal pulses - Respiratory Respiratory: No respiratory distress, Clear bilaterally - Abdomen Abdomen: Normal bowel sounds, Soft, Non tender, Non distended - Back Back: No CVA TTP, No spinal TTP - Derm Derm: Normal color, Warm and dry, No rash - Extremities Extremities: No deformity, No tenderness to palpate, Normal ROM s pain, No edema, No calf tenderness / cord - Neuro Neuro: Alert and oriented X 3, No motor deficit, No sensory deficit, Normal speech, Other (bilateral nystagmus w/ positive [place]-Hallpike test) Eye Opening: Spontaneous Motor: Obeys Commands Verbal: Oriented GCS Score: 15 - Psych Psych: Normal mood, Normal affect Results - Vitals Vitals: Vital Signs - 24 hr 02/24/23 02/24/23 02/24/23 13:59 14:10 15:21 Temperature 36.1 C L Heart Rate 77 88 Respiratory 20 15 15 Rate Blood Pressure 132/95 H 129/88 H 124/80 O2 Saturation 100 99 02/24/23 02/24/23 02/24/23 16:06 17:42 18:29 Temperature Heart Rate 66 87 84 Respiratory 15 15 15 Rate Blood Pressure 116/72 120/79 123/77 O2 Saturation 99 97 97 02/24/23 19:52 Temperature Heart Rate 82 Respiratory 14 Rate Blood Pressure 118/86 H O2 Saturation Oxygen O2 Source Room air - EKG (time done) No standard instances EKG releavant findings:: EKG personally interpreted by author of this note. Relevant findings are: Rate: Rate (enter#) (76) Rhythm: NSR [place]: Normal Intervals: Normal MS QRS: Normal Ischemia: Normal ST segments Computer interpretation: Disagree with computer - Labs Labs: Laboratory Tests 02/24/23 02/24/23 02/24/23 14:17 14:17 14:17 WBC 8.2 RBC 4.38 Hgb 13.4 Hct 40.7 MCV 92.9 MCH 30.6 MCHC 32.9 RDW 11.9 L Plt Count 222 MPV 10.8 Neut # (Auto) 6.4 Lymph # (Auto) 1.3 L [place] # (Auto) 0.4 Eos # (Auto) 0.0 Baso # (Auto) 0.1 Absolute Nucleated RBC 0.00 Nucleated RBC % 0.0 Sodium 140 Potassium 3.6 Chloride 104 Carbon Dioxide 29 Anion Gap 7.0 BUN 27 H Creatinine 0.8 Estimated GFR (MDRD) 72 L Glucose 130 H Calcium 9.7 Total Bilirubin 0.4 AST 20 ALT 18 Alkaline Phosphatase 66 Troponin I High Sens 2.7 Total Protein 6.9 Albumin 4.2 Globulin 2.7 Albumin/Globulin Ratio 1.6 Lipase 34 Urine Color Urine Clarity Urine pH Ur Specific [place] Urine Protein Urine Glucose (UA) Urine Ketones Urine Occult Blood Urine Nitrite Urine Bilirubin Urine Urobilinogen Ur Leukocyte Esterase Urine RBC Urine WBC Ur Squamous Epith Cells Amorphous Sediment Urine Bacteria Ur Microscopic Review Urine Culture Comments 02/24/23 18:15 WBC RBC Hgb Hct MCV MCH MCHC RDW Plt Count MPV Neut # (Auto) Lymph # (Auto) Archer # (Auto) Eos # (Auto) Baso # (Auto) Absolute Nucleated RBC Nucleated RBC % Sodium Potassium Chloride Carbon Dioxide Anion Gap BUN Creatinine Estimated GFR (MDRD) Glucose Calcium Total Bilirubin AST ALT Alkaline Phosphatase Troponin I High Sens Total Protein Albumin Globulin Albumin/Globulin Ratio Lipase Urine Color YELLOW Urine Clarity HAZY Urine pH 6.5 Ur Specific [place] 1.010 Urine Protein NEGATIVE Urine Glucose (UA) NEGATIVE Urine Ketones 15 H Urine Occult Blood NEGATIVE Urine Nitrite NEGATIVE Urine Bilirubin NEGATIVE Urine Urobilinogen 0.2 (NORMAL) Ur Leukocyte Esterase NEGATIVE Urine RBC None Seen Urine WBC 0-3 Ur Squamous Epith Cells RARE Squamous Amorphous Sediment Moderate Urine Bacteria Rare Ur Microscopic Review INDICATED Urine Culture Comments NOT INDICATED - Rads (name of study) No standard instances Relevant Findings:: Final report received, See rad report PD Medical Decision Making - ED course Complexity details: reviewed results, re-evaluated patient, considered differential, d/w patient, d/w family ED course: 62-year-old female presents with severe vertigo and dizziness with onset this morning. On arrival here, patient is retching, and appears uncomfortable. She has bilateral multidirectional nystagmus on physical exam with a positive [place]- Hallpike test. Differentials considered included benign positional vertigo, posterior circulation stroke or other CVA, MS, vasculitis, sepsis. She was given antiemetics, a dose of Ativan and IV fluids with modest improvement in her symptoms. I obtained a CT head given her Significant nystagmus and severe vertigo and that this was negative. Patient remains symptomatic as well as ataxic when attempting ambulation therefore I proceeded with an MRI to rule out stroke. MRI reassuring, there is a nonspecific foci of Flare as described on the MRI report though nonspecific at this time. Patient was feeling somewhat better with symptomatic management and I did attempt The Мария maneuver for the patient however she remains ataxic and symptomatic therefore we will continue to monitor overnight and treat symptomatically. If she has ongoing symptoms in the morning, I have ordered PT consult for evaluation.I do suspect this is benign positional vertigo given her otherwise reassuring exam Including CT MRI and labs Departure - Departure Disposition: ED Place in Observation Clinical Impression: Benign positional vertigo Qualifiers: Laterality: bilateral Qualified Code(s): H81.13 - Benign paroxysmal vertigo, bilateral Condition: Good Instructions: Vertigo Paroxysmal Positional
[2023-02-24 14:36] LABS: ALBUMIN 4.2 g/dL (3.2-5.5); ALBUMIN/GLOBULIN RATIO 1.6 (1.0-2.2); BILIRUBIN,TOTAL 0.4 mg/dL (0.2-1.0); CALCIUM 9.7 mg/dL (8.5-10.3); CREATININE 0.8 mg/dL (0.4-1.0); POTASSIUM 3.6 mmol/L (3.5-5.0); TOTAL PROTEIN 6.9 g/dL (6.7-8.2)
[2023-02-24] MEDS ORDERED: SODIUM CHLORIDE 0.9% 1,000 ML IV STA ×2 (14:50→20:17)
[2023-02-24] MEDS ORDERED: LORazepam 2 MG/ML VIAL IVP STA (14:50)
[2023-02-24] MEDS ORDERED: PROCHLORPERAZINE 10 MG/2 ML VIAL IVP STA (15:06)
--- OUTSIDE RECORDS SUMMARY | 2023-02-24 15:12 | EXTERNAL MEDICAL SUMMARY RPT | Continuity of Care Document ---
:1960 Author Organization [facility] Address [address] [place] [address] Phone Care Team Providers Name Role Phone Unavailable Unavailable Unavailable Adele Dairy Associate Enp, Amalia Unavailable Unavailable Varghese Romero, Delores Unavailable Unavailable Omero, Provider Unavailable Unavailable Allergies No information. Encounters No information. Functional Status No information. Immunizations No information. Medications date description facility 2022-11-27 00:00 phenazopyridine Walk[facility] Prim oliver Care & Anc[facility] Services [facility] 2022-11-27 00:00 phenazopyridine Walk-In [facility] Prim oliver Care & [facility] Services [facility] 2022-11-27 00:00 phenazopyridine Walk-In [facility] Prim oliver Care & Anc[facility] Services [facility] 2022-11-27 00:00 sulfamethoxazole-trimethoprim Walk[facility]In [facility] Primary Care & Ancillary Services [facility] 2022-11-27 00:00 sulfamethoxazole-trimethoprim Walk[facility]In [facility] Primary [facility] 2022-11-27 00:00 sulfamethoxazole-trimethoprim Walk[facility] Primary [facility] 2022-11-27 00:00 sulfamethoxazole-trimethoprim Walk[facility]In [facility] Primary [facility] 2022-11-27 00:00 sulfamethoxazole-trimethoprim Walk[facility]In [facility] Primary Care [facility] 2022-11-27 00:00 sulfamethoxazole-trimethoprim Walk[facility]In [facility] Primary [facility] 2022-11-27 00:00 phenazopyridine Walk-In Clinic Prim oliver Care & Anc[facility] Services [facility] 2022-11-27 00:00 phenazopyridine Walk-In [facility] Prim oliver Care & [facility] Services [facility] 2022-11-27 00:00 phenazopyridine Walk-In Clinic Prim oliver Care & [facility] Services [facility] 2022-11-27 00:00 sulfamethoxazole-trimethoprim Walk[facility]In [facility] Primary [facility] 2022-11-27 00:00 sulfamethoxazole-trimethoprim [facility] 2022-11-27 00:00 sulfamethoxazole-trimethoprim [facility] 2022-11-27 00:00 phenazopyridine [facility] Prim [facility] 2022-11-27 00:00 phenazopyridine [facility] Prim [facility] 2022-11-27 00:00 phenazopyridine [facility] Prim [facility] 2022-11-27 00:00 phenazopyridine [facility] Prim [facility] 2022-11-27 00:00 phenazopyridine [facility] Prim [facility] 2022-11-27 00:00 phenazopyridine [facility] Prim [facility] 2022-11-27 00:00 sulfamethoxazole-trimethoprim [facility] 2022-11-27 00:00 sulfamethoxazole-trimethoprim [facility] 2022-11-27 00:00 sulfamethoxazole-trimethoprim [facility] 20[facility]-11-27 00:00 Disorder of the urinary system [facility] 2022-11-27 00:00 Disorder of the urinary system [facility] 2022-11-27 00:00 Disorder of the urinary system [facility] 2022-11-27 00:00 Pyelonephritis Walk[facility] Prim [facility]liver [facility] 2022-11-27 00:00 Pyelonephritis Walk[facility] Prim [facility]liver [facility] 2022-11-27 00:00 Pyelonephritis Walk-In [facility] Prim olivre [facility] 2022-11-27 00:00 Pyelonephritis, unspecified Walk-In Cl in Primary [facility] 2022-11-27 00:00 Pyelonephritis, unspecified Walk-In Cl in Primary Care & Ancillary Services [facility] 2022-11-27 00:00 Pyelonephritis, unspecified Walk-In Cl in Primary Care & Ancillary Services [facility] 2022-11-27 00:00 Other specified disorders of [facility] tract [facility] 2022-11-27 00:00 Other specified disorders of [facility] tract [facility] 2022-11-27 00:00 Other specified disorders of [facility] tract [facility] 2022-11-27 00:00 Tubulo-interstitial nephritis, 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 [facility] [place] 2022-11-27 00:00 Tubulo-interstitial nephritis, 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 [facility] [place] 2022-11-27 00:00 Tubulo-interstitial nephritis, 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 [facility] [place] 2022-11-27 00:00 Disorder of urinary system, Walk-In Cl [facility] Primary Care & unspecified Ancillary Services [facility] 2022-11-27 00:00 Disorder of urinary system, Walk-In Cl [facility] Primary Care & unspecified Ancillary Services [facility] 2022-11-27 00:00 Disorder of urinary system, Walk-In Cl [facility] Primary Care & unspecified Ancillary Services [facility] 2022-12-14 00:00 Urgent desire to urinate Walk-In [facility] Primary Care & Ancillary Services [facility] 2022-12-14 00:00 Urgency of urination Walk-In [facility] Pr [facility] Procedures date description facility 2022-11-27 00:00 Visit Code Hold Walk[facility]In [facility] Prim [facility]liver [facility] [place] 2022-11-27 00:00 Visit Code Hold Walk[facility] Prim [facility]liver [facility] [place] 2022-11-27 00:00 Visit Code Hold Walk[facility]In [facility] Prim [facility] [place] 2022-12-14 00:00 Visit Code Hold [facility] Prim [facility] [place] 2022-11-27 00:00 POC URINALYSIS DIP Walk-In [facility] Prim [facility]liver [facility] [place] 2022-11-27 00:00 POC URINALYSIS DIP Walk[facility] 2022-11-27 00:00 POC URINALYSIS DIP Walk-In [facility] 2022-12-14 00:00 POC URINALYSIS DIP Walk-In [facility] Results/Labs test date author facility value unit interpret ation Result panel 1 (unknown) (no date) (unknown) Walk-In (no value) (units (unk nown) Clinic Primary unknown) [facility] Result panel 2 (unknown) (no date) (unknown) Walk-In (no value) (units (unk nown) Clinic Primary unknown) [facility] Result panel 3 (unknown) (no date) (unknown) Walk-In (no value) (units ([facility] nown) Clinic Primary unknown) [facility] Result panel 4 (unknown) (no date) (unknown) Walk-In (no value) (units (unk nown) Clinic Primary unknown) [facility] Result panel 5 (unknown) (no date) (unknown) Walk-In (no value) (units (unk nown) Clinic Primary unknown) [facility] Result panel 6 (unknown) (no date) (unknown) Walk-In (no value) (units (unk nown) Clinic Primary unknown) [facility] Result panel 7 (unknown) (no date) (unknown) Walk-In (no value) (units (unk nown) Clinic Primary unknown) [facility] Result panel 8 (unknown) (no date) (unknown) Walk-In (no value) (units (unk nown) Clinic Primary unknown) [facility] Result panel 9 (unknown) (no date) (unknown) Walk-In (no value) (units (unk nown) Clinic Primary unknown) [facility] Result panel 10 (unknown) (no date) (unknown) Walk-In (no value) (units (unk nown) Clinic Primary unknown) [facility] Result panel 11 (unknown) (no date) (unknown) Walk-In (no value) (units (unk nown) Clinic Primary unknown) [facility] Result panel 12 (unknown) (no date) (unknown) Walk-In (no value) (units (unk nown) Clinic Primary unknown) [facility] Result panel 13 (unknown) (no date) (unknown) Walk-In (no value) (units (unk nown) Clinic Primary unknown) [facility] Result panel 14 (unknown) (no date) (unknown) Walk-In (no value) (units (unk nown) Clinic Primary unknown) [facility] Result panel 15 (unknown) (no date) (unknown) Walk-In (no value) (units (unk nown) Clinic Primary unknown) [facility] Result panel 16 (unknown) (no date) (unknown) Walk-In (no value) (units (unk nown) Clinic Primary unknown) [facility] Result panel 17 (unknown) (no date) (unknown) Walk-In (no value) (units (unk nown) Clinic Primary unknown) [facility] Result panel 18 (unknown) (no date) (unknown) Walk-In (no value) (units (unk nown) Clinic Primary unknown) [facility] Result panel 19 (unknown) (no date) (unknown) Walk-In (no value) (units (unk nown) Clinic Primary unknown) [facility] Result panel 20 (unknown) (no date) (unknown) Walk-In (no value) (units (unk nown) Clinic Primary unknown) [facility] Result panel 21 (unknown) (no date) (unknown) Walk-In (no value) (units (unk nown) Clinic Primary unknown) [facility] Result panel 22 (unknown) (no date) (unknown) Walk-In (no value) (units (unk nown) Clinic Primary unknown) [facility] Result panel 23 (unknown) (no date) (unknown) Walk-In (no value) (units (unk nown) Clinic Primary unknown) [facility] Result panel 24 (unknown) (no date) (unknown) Walk-In (no value) (units (unk nown) Clinic Primary unknown) [facility] Result panel 25 (unknown) (no date) (unknown) Walk-In (no value) (units (unk nown) Clinic Primary unknown) [facility] Result panel 26 (unknown) (no date) (unknown) Walk-In (no value) (units (unk nown) [facility] Primary unknown) [facility] Result panel 27 (unknown) (no date) (unknown) Walk-In (no value) (units (unk nown) Clinic Primary unknown) [facility] Result panel 28 (unknown) (no date) (unknown) Walk-In (no value) (units (unk nown) Clinic Primary unknown) [facility] Result panel 29 (unknown) (no date) (unknown) Walk-In (no value) (units (unk nown) Clinic Primary unknown) [facility] Result panel 30 (unknown) (no date) (unknown) Walk-In (no value) (units (unk nown) Clinic Primary unknown) [facility] Result panel 31 (unknown) (no date) (unknown) Walk-In (no value) (units (unk nown) Clinic Primary unknown) [facility] Result panel 32 (unknown) (no date) (unknown) Walk-In (no value) (units (unk nown) Clinic Primary unknown) [facility] Result panel 33 (unknown) (no date) (unknown) Walk-In (no value) (units (unk nown) Clinic Primary unknown) [facility] Result panel 34 (unknown) (no date) (unknown) Walk-In (no value) (units (unk nown) Clinic Primary unknown) [facility] Result panel 35 (unknown) (no date) (unknown) Walk-In (no value) (units (unk nown) Clinic Primary unknown) [facility] Result panel 36 (unknown) (no date) (unknown) Walk-In (no value) (units (unk nown) Clinic Primary unknown) [facility] Result panel 37 (unknown) (no date) (unknown) Walk-In (no value) (units (unk nown) Clinic Primary unknown) [facility] Result panel 38 (unknown) (no date) (unknown) Walk-In (no value) (units (unk nown) [facility] Primary unknown) [facility] Result panel 39 (unknown) (no date) (unknown) Walk-In (no value) (units (unk nown) [facility] Primary unknown) [facility] Result panel 40 (unknown) (no date) (unknown) Walk-In (no value) (units (unk nown) Clinic Primary unknown) [facility] Result panel 41 (unknown) (no date) (unknown) Walk-In (no value) (units (unk nown) Clinic Primary unknown) [facility] Result panel 42 (unknown) (no date) (unknown) Walk-In (no value) (units (unk nown) Clinic Primary unknown) [facility] Result panel 43 (unknown) (no date) (unknown) Walk-In (no value) (units (unk nown) Clinic Primary unknown) [facility] Result panel 44 (unknown) (no date) (unknown) Walk-In (no value) (units (unk nown) Clinic Primary unknown) [facility] Result panel 45 (unknown) (no date) (unknown) Walk-In (no value) (units (unk nown) Clinic Primary unknown) [facility] Result panel 46 (unknown) (no date) (unknown) Walk-In (no value) (units (unk nown) [facility] Primary unknown) [facility] Result panel 47 (unknown) (no date) (unknown) Walk-In (no value) (units (unk nown) [facility] Primary unknown) [facility] Result panel 48 (unknown) (no date) (unknown) Walk-In (no value) (units (unk nown) [facility] Primary unknown) [facility] Result panel 49 (unknown) (no date) (unknown) Walk-In (no value) (units (unk nown) [facility] Primary unknown) [facility] Result panel 50 (unknown) (no date) (unknown) Walk-In (no value) (units (unk nown) [facility] Primary unknown) [facility] Result panel 51 (unknown) (no date) (unknown) Walk-In (no value) (units (unk nown) [facility] Primary unknown) [facility] Result panel 52 (unknown) (no date) (unknown) Walk-In (no value) (units (unk nown) [facility] Primary unknown) [facility] Result panel 53 (unknown) (no date) (unknown) Walk-In (no value) (units (unk nown) [facility] Primary unknown) [facility] Result panel 54 (unknown) (no date) (unknown) Walk-In (no value) (units (unk nown) [facility] Primary unknown) [facility] Result panel 55 (unknown) (no date) (unknown) Walk-In (no value) (units (unk nown) [facility] Primary unknown) [facility] Result panel 56 (unknown) (no date) (unknown) Walk-In (no value) (units (unk nown) [facility] Primary unknown) [facility] Result panel 57 (unknown) (no date) (unknown) Walk-In (no value) (units (unk nown) [facility] Primary unknown) [facility] Result panel 58 (unknown) (no date) (unknown) Walk-In (no value) (units (unk nown) [facility] Primary unknown) [facility] Result panel 59 (unknown) (no date) (unknown) Walk-In (no value) (units (unk nown) [facility] Primary unknown) [facility] Result panel 60 (unknown) (no date) (unknown) Walk-In (no value) (units (unk nown) [facility] Primary unknown[facility] Result panel 61 (unknown) (no date) (unknown) Walk-In (no value) (units (unk nown) [facility] Primary unknown) [facility] Result panel 62 (unknown) (no date) (unknown) Walk-In (no value) (units (unk nown) [facility] Primary unknown) [facility] Result panel 63 (unknown) (no date) (unknown) Walk-In (no value) (units (unk nown) [facility] Primary unknown) [facility] Result panel 64 (unknown) (no date) (unknown) Walk-In (no value) (units (unk nown) [facility] Primary unknown) [facility] Result panel 65 (unknown) (no date) (unknown) Walk-In (no value) (units (unk nown) [facility] Primary unknown) [facility] Result panel 66 (unknown) (no date) (unknown) Walk-In (no value) (units (unk nown) Clinic Primary unknown) [facility] Result panel 67 (unknown) (no date) (unknown) Walk-In (no value) (units (unk nown) Clinic Primary unknown) [facility] Result panel 68 (unknown) (no date) (unknown) Walk-In (no value) (units (unk nown) Clinic Primary unknown) [facility] Result panel 69 (unknown) (no date) (unknown) Walk-In (no value) (units (unk nown) Clinic Primary unknown) [facility] Result panel 70 (unknown) (no date) (unknown) Walk-In (no value) (units (unk nown) Clinic Primary unknown) [facility] Result panel 71 (unknown) (no date) (unknown) Walk-In (no value) (units (unk nown) Clinic Primary unknown) [facility] Result panel 72 (unknown) (no date) (unknown) Walk-In (no value) (units (unk nown) Clinic Primary unknown) [facility] Result panel 73 (unknown) (no date) (unknown) Walk-In (no value) (units (unk nown) Clinic Primary unknown) [facility] Result panel 74 (unknown) (no date) (unknown) Walk-In (no value) (units (unk nown) Clinic Primary unknown) [facility] Result panel 75 (unknown) (no date) (unknown) Walk-In (no value) (units (unk nown) Clinic Primary unknown) [facility] Result panel 76 (unknown) (no date) (unknown) Walk-In (no value) (units (unk nown) Clinic Primary unknown) [facility] Result panel 77 (unknown) (no date) (unknown) Walk-In (no value) (units (unk nown) Clinic Primary unknown) [facility] Result panel 78 (unknown) (no date) (unknown) Walk-In (no value) (units (unk nown) Clinic Primary unknown) [facility] Result panel 79 (unknown) (no date) (unknown) Walk-In (no value) (units (unk nown) Clinic Primary unknown) [facility] Result panel 80 (unknown) (no date) (unknown) Walk-In (no value) (units (unk nown) Clinic Primary unknown) [facility] Result panel 81 (unknown) (no date) (unknown) Walk-In (no value) (units (unk nown) Clinic Primary unknown) [facility] Result panel 82 (unknown) (no date) (unknown) Walk-In (no value) (units (unk nown) Clinic Primary unknown) [facility] Result panel 83 (unknown) (no date) (unknown) Walk-In (no value) (units (unk nown) Clinic Primary unknown) [facility] Result panel 84 (unknown) (no date) (unknown) Walk-In (no value) (units (unk nown) Clinic Primary unknown) [facility] Result panel 85 (unknown) (no date) (unknown) Walk-In (no value) (units (unk nown) Clinic Primary unknown) [facility] Result panel 86 (unknown) (no date) (unknown) Walk-In (no value) (units (unk nown) Clinic Primary unknown) [facility] Result panel 87 (unknown) (no date) (unknown) Walk-In (no value) (units (unk nown) Clinic Primary unknown) [facility] Result panel 88 (unknown) (no date) (unknown) Walk-In (no value) (units (unk nown) Clinic Primary unknown) [facility] Result panel 89 (unknown) (no date) (unknown) Walk-In (no value) (units (unk nown) Clinic Primary unknown) [facility] Result panel 90 (unknown) (no date) (unknown) Walk-In (no value) (units (unk nown) Clinic Primary unknown) [facility] Result panel 91 (unknown) (no date) (unknown) Walk-In (no value) (units (unk nown) Clinic Primary unknown) [facility] Result panel 92 (unknown) (no date) (unknown) Walk-In (no value) (units (unk nown) Clinic Primary unknown) [facility] Result panel 93 (unknown) (no date) (unknown) Walk-In (no value) (units (unk nown) Clinic Primary unknown) [facility] Result panel 94 (unknown) (no date) (unknown) Walk-In (no value) (units (unk nown) Clinic Primary unknown) [facility] Result panel 95 (unknown) (no date) (unknown) Walk-In (no value) (units (unk nown) Clinic Primary unknown) [facility] Result panel 96 (unknown) (no date) (unknown) Walk-In (no value) (units (unk nown) Clinic Primary unknown) [facility] Result panel 97 (unknown) (no date) (unknown) Walk-In (no value) (units (unk nown) Clinic Primary unknown) [facility] Result panel 98 (unknown) (no date) (unknown) Walk-In (no value) (units (unk nown) Clinic Primary unknown) [facility] Result panel 99 (unknown) (no date) (unknown) Walk-In (no value) (units (unk nown) Clinic Primary unknown) [facility] Result panel 100 (unknown) (no date) (unknown) Walk-In (no value) (units (unk nown) Clinic Primary unknown) [facility] Result panel 101 (unknown) (no date) (unknown) Walk-In (no value) (units (unk nown) Clinic Primary unknown) [facility] Result panel 102 (unknown) (no date) (unknown) Walk-In (no value) (units (unk nown) Clinic Primary unknown) [facility] Result panel 103 (unknown) (no date) (unknown) Walk-In (no value) (units (unk nown) Clinic Primary unknown) [facility] Result panel 104 (unknown) (no date) (unknown) Walk-In (no value) (units (unk nown) Clinic Primary unknown) [facility] Result panel 105 (unknown) (no date) (unknown) Walk-In (no value) (units (unk nown) Clinic Primary unknown) [facility] Result panel 106 (unknown) (no date) (unknown) Walk-In (no value) (units (unk nown) Clinic Primary unknown) [facility] Result panel 107 (unknown) (no date) (unknown) Walk-In (no value) (units (unk nown) Clinic Primary unknown) [facility] Result panel 108 (unknown) (no date) (unknown) Walk-In (no value) (units (unk nown) Clinic Primary unknown) [facility] Result panel 109 (unknown) (no date) (unknown) Walk-In (no value) (units (unk nown) Clinic Primary unknown) [facility] Result panel 110 (unknown) (no date) (unknown) Walk-In (no value) (units (unk nown) Clinic Primary unknown) [facility] Result panel 111 (unknown) (no date) (unknown) Walk-In (no value) (units (unk nown) Clinic Primary unknown) [facility] Result panel 112 (unknown) (no date) (unknown) Walk-In (no value) (units (unk nown) Clinic Primary unknown) [facility] Result panel 113 (unknown) (no date) (unknown) Walk-In (no value) (units (unk nown) Clinic Primary unknown) [facility] Result panel 114 (unknown) (no date) (unknown) Walk-In (no value) (units (unk nown) Clinic Primary unknown) [facility] Result panel 115 (unknown) (no date) (unknown) Walk-In (no value) (units (unk nown) Clinic Primary unknown) [facility] Result panel 116 (unknown) (no date) (unknown) Walk-In (no value) (units (unk nown) Clinic Primary unknown) [facility] Result panel 117 (unknown) (no date) (unknown) Walk-In (no value) (units (unk nown) Clinic Primary unknown) [facility] Result panel 118 (unknown) (no date) (unknown) Walk-In (no value) (units (unk nown) Clinic Primary unknown) [facility] Result panel 119 (unknown) (no date) (unknown) Walk-In (no value) (units (unk nown) Clinic Primary unknown) [facility] Result panel 120 (unknown) (no date) (unknown) Walk-In (no value) (units (unk nown) Clinic Primary unknown) [facility] Result panel 121 (unknown) (no date) (unknown) Walk-In (no value) (units (unk nown) Clinic Primary unknown) [facility] Result panel 122 (unknown) (no date) (unknown) Walk-In (no value) (units (unk nown) Clinic Primary unknown) [facility] Result panel 123 (unknown) (no date) (unknown) Walk-In (no value) (units (unk nown) Clinic Primary unknown) [facility] Result panel 124 (unknown) (no date) (unknown) Walk-In (no value) (units (unk nown) Clinic Primary unknown) [facility] Result panel 125 (unknown) (no date) (unknown) Walk-In (no value) (units (unk nown) Clinic Primary unknown[facility] Result panel 126 (unknown) (no date) (unknown) Walk-In (no value) (units (unk nown) Clinic Primary unknown) [facility] Result panel 127 (unknown) (no date) (unknown) Walk-In (no value) (units (unk nown) [facility] Result panel 128 (unknown) (no date) (unknown) Walk-In (no value) (units (unk nown) [facility] unknown) [facility] Result panel 129 (unknown) (no date) (unknown) Walk-In (no value) (units (unk nown) [facility]) [facility] Result panel 130 (unknown) (no date) (unknown) Walk-In (no value) (units (unk nown) [facility] Result panel 131 (unknown) (no date) (unknown) Walk-In (no value) (units ([facility] nown) [facility] Result panel 132 (unknown) (no date) (unknown) Walk-In (no value) (units ([facility] nown) [facility] Result panel 133 (unknown) (no date) (unknown) Walk-In (no value) (units ([facility] nown) [facility] Result panel 134 (unknown) (no date) (unknown) Walk-In (no value) (units ([facility] nown) [facility] Result panel 135 (unknown) (no date) (unknown) Walk-In (no value) (units ([facility] nown) [facility] Result panel 136 (unknown) (no date) (unknown) Walk-In (no value) (units (unk nown) [facility] Result panel 137 (unknown) (no date) (unknown) Walk-In (no value) (units ([facility] nown) [facility] Result panel 138 (unknown) (no date) (unknown) Walk-In (no value) (units (unk nown) [facility] Result panel 139 (unknown) (no date) (unknown) Walk-In (no value) (units (unk nown) [facility] Result panel 140 (unknown) (no date) (unknown) Walk-In (no value) (units (unk nown) [facility] Result panel 141 (unknown) (no date) (unknown) Walk-In (no value) (units (unk nown) [facility] Result panel 142 (unknown) (no date) (unknown) Walk-In (no value) (units (unk nown) [facility] Result panel 143 (unknown) (no date) (unknown) Walk-In (no value) (units (unk nown) [facility] unknown) [facility] [place] Result panel 144 (unknown) (no date) (unknown) Walk-In (no value) (units (unk nown) [facility] Primary unknown) [facility] [place] Social History date description facility 2022-11-27 00:00 Never smoker Walk-In Clinic [facility] [place] 2022-11-27 00:00 Never smoker Walk-In Clinic [facility] [place] 2022-11-27 00:00 Never smoker Walk-In [facility] [place] 2022-12-14 00:00 Never smoker Walk-In [facility] [place] Vital Signs date measurement value units 2022-11-27 00:00 BMI 20.44 kg/m2 2022-11-27 00:00 BP_diastolic 68 mmHg 2022-11-27 00:00 BP_systolic 113 mmHg 2022-11-27 00:00 heart_rate 81 /min 2022-11-27 00:00 height_metric 160.02 cm 2022-11-27 00:00 height_standard 63 in 2022-11-27 00:00 respiration_rate 15 /min 2022-11-27 00:00 temperature_metric 36.22 C 2022-11-27 00:00 temperature_standard 97.2 F 2022-11-27 00:00 weight_metric 52.16 kg 2022-11-27 00:00 weight_standard 115 lb 2022-12-14 00:00 BMI 20.44 kg/m2 2022-12-14 00:00 BP_diastolic 69 mmHg 2022-12-14 00:00 BP_systolic 110 mmHg 2022-12-14 00:00 heart_rate 75 /min 2022-12-14 00:00 height_metric 160.02 cm 2022-12-14 00:00 height_standard 63 in 2022-12-14 00:00 respiration_rate 14 /min 2022-12-14 00:00 temperature_metric 36.56 C 2022-12-14 00:00 temperature_standard 97.8 F 2022-12-14 00:00 weight_metric 52.16 kg 2022-12-14 00:00 weight_standard 115 lb
--- NOTE | 2023-02-24 16:41 | CT Report ---
PROCEDURE: CT brain without contrast INDICATIONS: vertigo TECHNIQUE: Noncontrast 4.5 mm thick angled axial sections acquired from the foramen magnum to the vertex. For r adiation dose reduction, the following was used: automated exposure control, adjustment of mA and/or kV according to patient size. COMPARISON: None. FINDINGS: Image quality: Excellent. CSF spaces: Basal cisterns are patent. No extra-axial fluid collections. Ventricles are normal in size and shape. Brain: No midline shift. No intracranial masses or hemorrhage. Godfrey-white matter interface is norm al. Skull and face: Calvarium and visualized facial bones are intact, without suspicious lesions. 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 IMPRESSION: Unremarkable CT brain without intracranial hemorrhage or mass effect Reviewed by: Harley Tinoco MD on 02/24/2023 3:40 PM AKDT Approved by: Harley Tinoco MD on 02/24/2023 3:40 PM AKDT Station ID: [id number]
[2023-02-24 18:25] LABS: BILIRUBIN,URINE NEGATIVE (NEGATIVE); GLUCOSE, URINE (UA) NEGATIVE (NEGATIVE); KETONES,URINE (UA) 15 mg/dL (NEGATIVE); LEUKOCYTE ESTERASE, URINE NEGATIVE (NEGATIVE); NITRITE,URINE NEGATIVE (NEGATIVE); OCCULT BLOOD,URINE NEGATIVE (NEGATIVE); PH,URINE 6.5 PH (5.0-7.5); PROTEIN,URINE NEGATIVE (NEGATIVE); UROBILINOGEN,URINE 0.2 (NORMAL) E.U./dL (NORMAL)
[2023-02-24 18:26] LABS: CLARITY,URINE HAZY (CLEAR)
[2023-02-24 18:34] LABS: BACTERIA,URINE Rare /HPF (None Seen); RBC,URINE None Seen /HPF (0-5); SQUAMOUS EPITHELIAL CELL,UR RARE Squamous (<= Few); WBC,URINE 0-3 /HPF (0-5)
[2023-02-24 18:35] LABS: AMORPHOUS SEDIMENT,UR Moderate /LPF
[2023-02-24] MEDS ORDERED: ONDANSETRON 4 MG/2 ML VIAL IVP PRN (19:24)
[2023-02-24] MEDS ORDERED: ACETAMINOPHEN 500 MG TABLET PO PRN (19:24)
[2023-02-24] MEDS ORDERED: MECLIZINE 12.5 MG TABLET PO STA (19:25)
--- NOTE | 2023-02-24 19:57 | MRI Report ---
PROCEDURE: BRAIN WO INDICATIONS: severe vertigo and multidirectional nystagmus TECHNIQUE: Noncontrast axial T1 spin echo, axial T2 fast spin echo, sagittal and axial FLAIR, coronal T2 fast sp in echo, axial gradient echo, axial diffusion and ADC through the brain. COMPARISON: CT head 02/24/2023 FINDINGS: Image quality: Excellent. The ventricular system and cortical sulci demonstrate atrophy, consistent for patient's stated age. There are areas of hyperintense T2/FLAIR signal in the periventricular and subcortical white matter. There is no acute intra or extra-axial fluid collection. No acute hemorrhage, mass lesion or midlin e shift. Brainstem is unremarkable. There are no areas of restricted diffusion. Globes are symmetr ical. Sinuses are aerated. Osseous structures are intact. IMPRESSION: 1. No acute intracranial process. 2. Foci of increased T2/FLAIR signal are present the periventricular and subcortical white matter. Th mp may represent areas of chronic microvascular ischemia. However, there overall nonspecific and oth er etiologies such as migraine sequela, vasculitis or potentially demyelinating disease should be con sidered as appropriate. Reviewed by: Paula Pandya MD on 02/24/2023 7:55 PM PDT Approved by: Paula Pandya MD on 02/24/2023 7:55 PM PDT Station ID: [id number]
[2023-02-25] MEDS ORDERED: MECLIZINE 12.5 MG TABLET PO PRN (03:25)
[2023-02-25 06:12] VITALS: BP 120/81
--- NOTE | 2023-02-25 06:14 | ED Physician Documentation ---
ED Addendum - Addendum Addendum: 02/25/23 06:14 Patient was evaluated yesterday afternoon for new onset vertigo. She had an extensive work-up including a CT of the brain and MRI which was unremarkable for stroke.She received medications for vertigo but remained significantly dizzy and needing assistance From staff to ambulate and it was felt thatHer symptoms were not yet under control enough for her to safely go home. She was allowed to then board in the emergency department overnight. She did require additional antinausea medication. This morning she is doing much better and is able to ambulate to the bathroom with just holding staff hand. She was actually able to ambulate back to her room without really any assistance. She does report still having some dizziness and nausea but it is drastically improved from yesterday. Patient has prescriptions that were already written for her. I have sent them electronically to [facility] in [place]. Patient's is at home and can help her throughout the day and she feels comfortable with discharge and would like to go home.Patient is counseled on need for close follow-up with PCP as well as continued symptom management. She is advised on concerning symptoms to return for. Departure - Departure Disposition: Home, Self Care Clinical Impression: Benign positional vertigo Qualifiers: Laterality: bilateral Qualified Code(s): H81.13 - Benign paroxysmal vertigo, bilateral Condition: Good Instructions: Vertigo Paroxysmal Positional, ED BPV Vertigo Prescriptions: Meclizine HCl [Antivert] 25 mg PO Q6HR PRN #30 ea PRN Reason: Vertigo Ondansetron Odt [Zofran] 4 mg TL Q6H PRN #10 tablet PRN Reason: Nausea / Vomiting Comments: You presented with dizziness/vertigo. Your symptoms are consistent with benign positional vertigo which is often transient. We did obtain labs and did a CT scan and MRI to evaluate for other possible causes of your symptoms and these tests were stable. You received a number of medications for nausea and dizziness with some improvement. I have ordered a medication for nausea (Zofran) and dizziness (Meclizine) which you can use as needed for your symptoms. I have also recommended the Мария Maneuver, which you can do at home, to help with symptoms. Please avoid driving or operating machinery or participating in any activity that could be dangerous if you had an episode of dizziness or vertigo, until your symptoms resolve. I have recommended you follow up with your primary doctor in the next week. Your prescriptions were sent to [facility] in [place].
[2023-02-25] MEDS ORDERED: PANTOPRAZOLE 40 MG TABLET PO SCH (07:00)
== END 2023-02-25 06:30 | disposition home or self-care (01) ==
LOC: EDUNIT# → ED 13:55
DX: H81.13 Benign paroxysmal vertigo, bilateral (principal)
CPT/HCPCS: 36415; 70450; 70551; 80053; 81001; 83690; 84484; 85025; 93005; 96374; 96375; 99284; A9270; J2060; 80048; 81003; 87086

== ENCOUNTER 2023-04-15 08:00 | Outpatient (CLI) | payer OTHER ==
--- NOTE | 2023-04-15 13:59 | XRAY Report ---
PROCEDURE: Chest 2 View X-Ray INDICATIONS: PERSISTANT COUGH TECHNIQUE: 2 views of the chest were acquired. COMPARISON: None. FINDINGS: Surgical changes and devices: None. Lungs and pleura: No pleural effusions or pneumothorax. Lungs are clear. Mediastinum: Mediastinal contours appear normal. Heart size is normal. Bones and chest wall: No suspicious bony lesions. Overlying soft tissues appear unremarkable. IMPRESSION: No acute cardiopulmonary process. Reviewed by: Wilbert Isaac MD on 04/15/2023 12:58 PM AKDT Approved by: Wilbert Isaac MD on 04/15/2023 12:58 PM AKDT Station ID: [id number]
== END 2023-04-15 23:59 | disposition home or self-care (01) ==
LOC: DI.S 08:00
PROVIDERS: ATTEND Physician Assistant Medical
DX: R05.3 Chronic cough (principal)

== ENCOUNTER 2024-07-24 09:47 | Outpatient (CLI) | payer OTHER ==
--- NOTE | 2024-07-25 07:58 | Mammography Report ---
BILATERAL DIGITAL SCREENING MAMMOGRAM 3D/2D: 07/24/2024 CLINICAL: Routine screening. Comparison is made to exams dated: 06/16/2023 mammogram and 05/12/2022 mammogram - [facility]. There are scattered areas of fibroglandular density in both breasts (category b / 25%-50% glandular t issue). No significant masses, calcifications, or other findings are seen in either breast. There has been no significant interval change. IMPRESSION: NEGATIVE There is no mammographic evidence of malignancy. A 1 year screening mammogram is recommended. Based on the Tyrer Cuzick model (a risk assessment model) the patient's lifetime risk is 6.1% and her 10 year risk is 2.8%. According to the ACR, ACS, and NCCN guidelines, an annual breast MRI exam kenna g with mammogram is recommended if the patient's lifetime risk is 20% or greater. This exam was interpreted at Station ID: [id number]. NOTE: For mammograms, a report in lay terms will be sent to the patient. Approximately 15% of breast malignancies will not be visualized mammographically. In the management of a palpable breast mass, a negative mammogram must not discourage biopsy of a clinically suspicious lesion. Electronically Signed By: Jones reyes/pratik:07/24/2024 12:03:08 letter sent: No_Letter ACR BI-RADS Category 1: Negative 3341F PARENCHYMAL PATTERN: (A) - The breast(s) demonstrate(s) scattered fibroglandular densities. BI-RADS CATEGORY: (1) - 1 RECOMMENDATION: (ANNUAL) - Recommend routine annual screening mammography. [id number] 1 year screening LATERALITY: (B)
== END 2024-07-24 09:48 | disposition home or self-care (01) ==
LOC: DI.S 09:47
DX: Z12.31 Encounter for screening mammogram for malignant neoplasm of breast (principal); R92.323 Mammographic fibroglandular density, bilateral breasts